=== PATIENT | female | born 1990 | race African-American/Black ===

== ENCOUNTER 2018-07-31 13:18 | Emergency (ER) | payer MEDICAID ==
[~2018-07-31] VITALS: Ht 175.3 cm; Wt 88.0 kg
[2018-07-31] MEDS ORDERED: SODIUM CHLORIDE 0.9% 1,000 ML IV ONE ×2 (14:10→15:43)
[2018-07-31] MEDS ORDERED: ONDANSETRON HCL 4MG/2ML INJ IV ONE (14:45)
[2018-07-31] MEDS ORDERED: KETOROLAC 15MG/ML VIAL IV ONE (14:45)
[2018-07-31 15:23] LABS: BASOPHILS % 0.3 % (0.0-2.0); EOSINOPHILS % 0.2 % (0.0-5.0); HEMATOCRIT. 34.8 % (36.0-48.0); HEMOGLOBIN. 11.9 g/dL (12.0-16.0); LYMPHOCYTES % 14.3 % (20.0-50.0); MEAN CORPUSCULAR HEMOGLOBIN 22.3 pg (28.0-32.0); MEAN CORPUSCULAR VOLUME 65.3 fL (81.0-99.0); MEAN PLATELET VOLUME 9.5 fl (7.4-10.4); MONOCYTES % 7.7 % (2.0-8.0); NEUTROPHILS % 77.5 % (40.0-76.0); PLATELET 237 x1000/uL (130-400); RED BLOOD CELL COUNT 5.32 mill/uL (4.2-5.4); RED CELL DISTRIBUTION WIDTH 19.6 % (11.6-14.6)
[2018-07-31 15:29] LABS: CHLORIDE 105 mEq/L (98-107)
[2018-07-31 15:40] LABS: CLARITY URINE CLEAR (CLEAR); COLOR URINE DARK YELLOW (YELLOW); KETONES URINE TRACE (NEGATIVE); LEUKOCYTE ESTERASE URINE 1+ (NEGATIVE); NITRITE URINE NEGATIVE (NEGATIVE); OCCULT BLOOD URINE NEGATIVE (NEGATIVE); PH URINE 6.5 (4.5-8.0); PROTEIN URINE TRACE (NEGATIVE); SPECIFIC GRAVITY URINE 1.031 (1.005-1.030)
[2018-07-31] MEDS ORDERED: VISCOUS LIDOCAINE 2% 15 ML UDC MM STA (15:43)
[2018-07-31] MEDS ORDERED: MAGNESIUM/ALUMINUM HYDROXIDE/SIMETHICONE 30ML UDC PO ONE (15:45)
[2018-07-31 16:40] VITALS: BP 122/80
[2018-07-31 16:42] LABS: PLATELET ESTIMATE NORMAL
== END 2018-07-31 18:01 | disposition home or self-care (01) ==
LOC: ER 15:05
DX: R55 Syncope and collapse (principal); N39.0 Urinary tract infection, site not specified; E86.0 Dehydration; Z98.84 Bariatric surgery status
CPT/HCPCS: 36415; 80053; 81003; 81025; 85025; 93005; 96361; 96374; 96375; 99285; J1885; J2405; J7030